=== PATIENT | male | born 1985 | race Caucasian/White ===

== ENCOUNTER 2018-08-03 19:27 | Observation (INO) | payer BC, OTHER ==
[2018-08-03 22:06] LABS: ADD MAN DIFF? NO
[2018-08-03 22:08] LABS: WHITE BLOOD COUNT 14.2 10^3/ul (4.8-10.8)
[2018-08-03 22:08] LABS: BASOPHIL # 0.1 10^3/ul (0.0-0.1); BASOPHILS % 0.9 % (0.0-2.0); EOSINOPHILS # 0.2 10^3/ul (0.0-0.5); EOSINOPHILS % 1.2 % (0.0-7.0); HEMATOCRIT 48.1 % (42.0-52.0); LYMPHOCYTES # 2.2 10^3/ul (0.8-2.9); LYMPHOCYTES % 15.4 % (15.0-51.0); MEAN CORPUSCULAR HEMOGLOBIN 29.5 pg (29.0-33.0); MEAN CORPUSCULAR HGB CONC 33.3 g/dl (32.0-37.0); MEAN CORPUSCULAR VOLUME 88.6 fl (82.0-101.0); MEAN PLATELET VOLUME 9.4 fl (7.4-10.4); MONOCYTE # 0.6 10^3/ul (0.3-0.9); MONOCYTES % 4.4 % (0.0-11.0); NEUTROPHILS % 77.6 % (39.0-77.0); PLATELET COUNT 297 10^3/UL (140-415); RED BLOOD COUNT 5.43 10^6/ul (4.70-6.10); RED CELL DISTRIBUTION WIDTH 13.1 % (11.5-14.5)
[2018-08-03] MEDS: ENALAPRILAT 1.25 MG INJ IV (22:11)
[2018-08-03] MEDS: NITROGLYCERIN (SL) 0.4 MG TAB SL (22:11)
[2018-08-03 22:30] LABS: ALANINE AMINOTRANSFERASE 44 IU/L (13-69); ALBUMIN 4.7 g/dl (3.3-4.9); ALKALINE PHOSPHATASE 110 IU/L (42-121); ANION GAP 15 (5-13); ASPARTATE AMINO TRANSFERASE 48 IU/L (15-46); BILIRUBIN,INDIRECT 0.6 mg/dl (0-1.1); BILIRUBIN,TOTAL 0.6 mg/dl (0.2-1.3); BLOOD UREA NITROGEN 15 mg/dl (7-20); CALCIUM 9.7 mg/dl (8.4-10.2); CARBON DIOXIDE 27 mmol/L (21-31); CHLORIDE 101 mmol/L (97-110); CREATININE 1.35 mg/dl (0.61-1.24); Estimated GFR > 60 mL/min (>60); GLUCOSE 102 mg/dl (70-220); LIPASE 50 U/L (23-300); POTASSIUM 4.3 mmol/L (3.5-5.1); SODIUM 143 mmol/L (135-144); TOTAL PROTEIN 8.6 g/dl (6.1-8.1)
[2018-08-03 22:42] LABS: TROPONIN-I < 0.012 ng/ml (0.000-0.120)
[2018-08-03] MEDS: hydrALAzine 20 MG INJ IV (22:55)
[2018-08-04] MEDS: METOPROLOL 5 MG INJ IV (00:24)
[2018-08-04] MEDS: ENALAPRILAT 1.25 MG INJ IV (02:56)
[2018-08-04] MEDS: hydrALAzine 20 MG INJ IV (04:02)
[2018-08-04] MEDS ORDERED: ACETAMINOPHEN 325 MG TAB PO (06:30)
[2018-08-04] MEDS ORDERED: ONDANSETRON 4 MG INJ IV (06:30)
[2018-08-04] MEDS ORDERED: NACL 0.9% 3 ML SYG IV (06:30)
[2018-08-04] MEDS ORDERED: DOCUSATE SODIUM 100 MG CAP PO (06:30)
[2018-08-04 09:05] LABS: CREATINE KINASE 280 IU/L (23-200)
[2018-08-04 09:07] LABS: D-DIMER 400.64 ng/ml (<460)
[2018-08-04 09:16] LABS: CK INDEX 0.5; TROPONIN-I < 0.012 ng/ml (0.000-0.120)
[2018-08-04] MEDS: NIFEdipine 10 MG CAP PO (12:36)
[2018-08-04] MEDS: METOPROLOL 25 MG TAB PO ×2 (12:36→20:54)
[2018-08-04 13:40] LABS: CREATINE KINASE 248 IU/L (23-200)
[2018-08-04 13:52] LABS: CK INDEX 0.5; CK-MB 1.34 ng/ml (0.0-2.4); TROPONIN-I < 0.012 ng/ml (0.000-0.120)
[2018-08-04] MEDS: SOD CHLORIDE 0.9% 500 ML IV (14:27)
[2018-08-04] MEDS: SOD CHLORIDE 0.45% 1,000 ML IV (14:27)
[2018-08-04] MEDS ORDERED: LORAZEPAM 0.5 MG TAB PO (16:00)
[2018-08-04 17:24] LABS: ADD UMIC YES; UR ASCORBIC ACID NEGATIVE (NEGATIVE); UR BILIRUBIN (Dip) NEGATIVE (NEGATIVE); UR BLOOD (Dip) NEGATIVE (NEGATIVE); UR CLARITY CLEAR (CLEAR); UR COLOR STRAW (YELLOW); UR GLUCOSE (Dip) NEGATIVE (NEGATIVE); UR KETONES (Dip) NEGATIVE (NEGATIVE); UR LEUKOCYTE ESTERASE (Dip) NEGATIVE Leu/ul (NEGATIVE); UR NITRITE (Dip) NEGATIVE (NEGATIVE); UR RBC 0 /HPF (0-5); UR SPECIFIC GRAVITY (Dip) 1.008 (1.003-1.030); UR TOTAL PROTEIN (Dip) 2+ mg/dl (NEGATIVE); UR UROBILINOGEN (Dip) NEGATIVE (NEGATIVE); UR WBC 0 /HPF (0-5)
[2018-08-04] MEDS: NIFEdipine (XL) 30 MG TAB PO (20:55)
[2018-08-05] MEDS: hydrALAzine 20 MG INJ IV (00:20)
[2018-08-05] MEDS: PANTOPRAZOLE (EC) 40 MG TAB PO (05:31)
[2018-08-05 05:59] LABS: ADD MAN DIFF? NO
[2018-08-05 06:10] LABS: BASOPHIL # 0.1 10^3/ul (0.0-0.1); BASOPHILS % 0.5 % (0.0-2.0); EOSINOPHILS # 0.2 10^3/ul (0.0-0.5); EOSINOPHILS % 1.1 % (0.0-7.0); HEMATOCRIT 45.1 % (42.0-52.0); HEMOGLOBIN 14.9 g/dl (14.0-18.0); LYMPHOCYTES # 2.2 10^3/ul (0.8-2.9); LYMPHOCYTES % 14.7 % (15.0-51.0); MEAN CORPUSCULAR HEMOGLOBIN 29.2 pg (29.0-33.0); MEAN CORPUSCULAR VOLUME 88.4 fl (82.0-101.0); MEAN PLATELET VOLUME 9.3 fl (7.4-10.4); MONOCYTES % 6.6 % (0.0-11.0); NEUTROPHIL # 11.2 10^3/ul (1.6-7.5); NEUTROPHILS % 76.6 % (39.0-77.0); PLATELET COUNT 287 10^3/UL (140-415); RED CELL DISTRIBUTION WIDTH 13.2 % (11.5-14.5)
[2018-08-05 06:10] LABS: WHITE BLOOD COUNT 14.7 10^3/ul (4.8-10.8)
[2018-08-05 06:32] LABS: CHOL/HDL RATIO 4.2 RATIO; HDL CHOLESTEROL 45 mg/dl (28-63); LDL CHOLESTEROL,CALCULATED 124 mg/dl; TRIGLYCERIDES 109 mg/dl (0-149)
[2018-08-05 06:32] LABS: CHOLESTEROL 191 mg/dl (100-200)
[2018-08-05 06:35] LABS: ANION GAP 12 (5-13); BLOOD UREA NITROGEN 15 mg/dl (7-20); CARBON DIOXIDE 25 mmol/L (21-31); CHLORIDE 104 mmol/L (97-110); CREATININE 1.22 mg/dl (0.61-1.24); Estimated GFR > 60 mL/min (>60); GLUCOSE 98 mg/dl (70-220); SODIUM 141 mmol/L (135-144)
[2018-08-05 07:41] LABS: HEMOGLOBIN A1C 5.1 % (0-5.9)
[2018-08-05] MEDS: METOPROLOL 25 MG TAB PO (08:19)
[2018-08-05] MEDS: NIFEdipine (XL) 30 MG TAB PO (08:19)
[2018-08-05] MEDS: SOD CHLORIDE 0.45% 1,000 ML IV (10:00)
== END 2018-08-05 13:04 | disposition home or self-care (01) ==
LOC: E/R 19:27 → 6WM 08-04 01:30
DX: I16.9 Hypertensive crisis, unspecified (principal); I10 Essential (primary) hypertension; R07.9 Chest pain, unspecified; E66.01 Morbid (severe) obesity due to excess calories; Z68.42 Body mass index [BMI] 45.0-49.9, adult; E78.5 Hyperlipidemia, unspecified; N19 Unspecified kidney failure; R00.0 Tachycardia, unspecified; R94.31 Abnormal electrocardiogram [ECG] [EKG]; R51 Headache
CPT/HCPCS: 36415; 70450; 71045; 76775; 80048; 80053; 80061; 81001; 82550; 82553; 83036; 83690; 84443; 84484; 85025; 85378; 93005; 93306; 96374; 96375; 99217; 99285-25; G0378